=== PATIENT | male | born 1985 | race Caucasian/White ===

== ENCOUNTER 2018-05-12 05:59 | Day surgery (SDC) | payer BC ==
[~2018-05-12] VITALS: Ht 170.2 cm; Wt 93.0 kg
[2018-05-12] VITALS (8 sets, daily range): BP systolic 115–140; BP diastolic 77–91; PULSE 86–100; TEMP 98–98.4
--- NOTE | 2018-05-12 06:45 | NUR ---
Rico Khan [employer] here and talks with the patient. Versed given per [employer] for feeling anxious.
--- NOTE | 2018-05-12 10:47 | NUR ---
Patient returns to room 1 per cart and is awake and alert. Temp 96.5 and room air sats 93%. Bandaids x3 on abdomen clean and dry. IV fluids infusing and siderails up x2. Call light in reach. Allowed to rest. Family at side. Scrotal support on.
--- NOTE | 2018-05-12 11:02 | NUR ---
Patient was resting and sats down to 88%. Placed on 2L and sats up to 95%. Continues to rest without complaints.
--- NOTE | 2018-05-12 11:17 | NUR ---
Continues to rest and denies pain or nausea.
--- NOTE | 2018-05-12 11:32 | NUR ---
More awake and oxygen removed. Eating muffin and drinking water. Continues to deny pain or nausea.
--- NOTE | 2018-05-12 11:47 | NUR ---
IV fluids infusing and talking with family.
[2018-05-12] MEDS ORDERED: TYLENOL 500MG500 MG PO (11:58)
[2018-05-12] MEDS ORDERED: ROXICODONE 55 MG/TAB PO (11:59)
--- NOTE | 2018-05-12 12:11 | NUR ---
Tylenol 1000mg po started as ordered.
--- NOTE | 2018-05-12 12:17 | NUR ---
Resting and family at side.
--- NOTE | 2018-05-12 12:55 | NUR ---
Up ambulatory to the bathroom with one person assist. Complains of scrotal support being tight and uncomfortable. Given larger size. Rates pain at 3/10. Returns to room and medicated with Roxicodone 5mg one tab. Given dismissal instructions and voices understanding of home cares and follow up as scheduled. IV discontinued and spouse assists patient with dressing.
--- NOTE | 2018-05-12 13:10 | NUR ---
Patient dismissed to home per private vehicle driven by spouse with dismissal instructions in hand. Given script for Oxycodone and Tylenol. Provided office number for questions and concerns.
== END 2018-05-12 13:10 | disposition home or self-care (01) ==
LOC: SDCO 05:59
DX: K40.90 Unilateral inguinal hernia, without obstruction or gangrene, not specified as recurrent (principal); M10.9 Gout, unspecified
CPT/HCPCS: C1781; J0690; J1100; J1885; J2250; J2405; J2704; J3010; J7120